=== PATIENT | female | born 1940 | race Caucasian/White ===

== ENCOUNTER 2016-09-03 13:15 | Inpatient (IN) | payer MEDICARE ==
[~2016-09-03] VITALS: Ht 167.6 cm; Wt 83.6 kg
[2016-09-03] MEDS ORDERED: SODIUM CHLORIDE 0.9% 1,000 ML IV ONE (13:46)
[2016-09-03] MEDS ORDERED: SODIUM CHLORIDE 0.9% 1,000ML IVBOLUS ONE (14:00)
[2016-09-03] MEDS ORDERED: PARO20TA4 PO (14:34)
[2016-09-03] MEDS ORDERED: ASPI-496 PO (14:34)
[2016-09-03] MEDS ORDERED: LEVO75TA5 PO (14:34)
[2016-09-03] MEDS ORDERED: SIMV40TA3 PO (14:34)
[2016-09-03] MEDS ORDERED: OMEP-110 PO (14:34)
[2016-09-03] MEDS ORDERED: LISI-167 PO (14:34)
[2016-09-03 14:57] LABS: BLOOD UREA NITROGEN 14 mg/dL (7-18)
[2016-09-03] MEDS ORDERED: SODIUM CHLORIDE FLUSH 10ML SYR IVF ONE (15:00)
[2016-09-03 15:03] LABS: ASPARTATE AMINO TRANSFERASE 36 U/L (15-37); IS PT STATUS REG ER OR PRE ER? YES
[2016-09-03] MEDS ORDERED: OMNIPAQUE 350 MG/ML, 100ML BOTTLE ONE (15:37)
[2016-09-03] MEDS ORDERED: DILTIAZEM 5 MG/ML, 5ML ONE (16:21)
[2016-09-03] MEDS ORDERED: DILTIAZEM 5 MG/ML, 5ML IV ONE (16:30)
[2016-09-03] MEDS ORDERED: ASPIRIN 81 MG TABLET CHEW PO ONE (17:00)
[2016-09-03] MEDS ORDERED: POTASSIUM CHLORIDE 20 MEQ TAB.ER.PRT PO ONE (17:00)
[2016-09-03] MEDS ORDERED: DILTIAZEM 5 MG/ML, 5ML IVPush PRN (18:00)
[2016-09-03 18:43] LABS: IS PT STATUS REG ER OR PRE ER? YES
[2016-09-03] MEDS ORDERED: POTASSIUM CHLORIDE 20 MEQ TAB.ER.PRT ONE (21:25)
[2016-09-03] MEDS: ENOXAPARIN 40 MG/0.4 ML SQ SCH (21:33)
[2016-09-03] MEDS: INSULIN ASPART 100 UNITS/ML, PEN SQ-INSULIN SCH (21:34)
[2016-09-04 00:19] VITALS: BP 136/84
[2016-09-04 00:52] LABS: IS PT STATUS REG ER OR PRE ER? NO
[2016-09-04 00:57] LABS: PATH.CAST-FLAG NOT PRESENT; SPERM-FLAG NOT PRESENT; SRC-FLAG NOT PRESENT; XTAL-FLAG NOT PRESENT; YLC-FLAG NOT PRESENT
[2016-09-04] MEDS ORDERED: MAGNESIUM SULFATE PMX 2GM/50ML 50 ML IV ONE ×2 (02:00→08:00)
[2016-09-04] MEDS ORDERED: METOPROLOL 1 MG/ML, 5ML IVPush ONE (02:00)
[2016-09-04] MEDS ORDERED: CEFTRIAXONE PMX 1GM/50ML 50 ML IV SCH (02:00)
[2016-09-04 03:42] VITALS: BP 141/77
[2016-09-04 05:57] LABS: ASPARTATE AMINO TRANSFERASE 77 U/L (15-37); BLOOD UREA NITROGEN 14 mg/dL (7-18)
[2016-09-04 06:49] VITALS: BP 162/89
[2016-09-04] MEDS ORDERED: POTASSIUM CHLORIDE 20 MEQ TAB.ER.PRT PO ONE (08:00)
[2016-09-04] MEDS: INSULIN ASPART 100 UNITS/ML, PEN SQ-INSULIN SCH ×4 (09:00→21:23)
[2016-09-04] MEDS: LISINOPRIL 10 MG TABLET PO SCH (09:25)
[2016-09-04] MEDS: ASPIRIN 81 MG TABLET EC PO SCH (09:25)
[2016-09-04] MEDS: PAROXETINE 20 MG TABLET PO SCH (09:25)
[2016-09-04] MEDS: LEVOTHYROXINE 75 MCG TABLET PO SCH (09:26)
[2016-09-04] MEDS: METOPROLOL TARTRATE 50 MG TABLET PO SCH ×2 (09:26→18:13)
[2016-09-04] MEDS: LORazepam 0.5MG TABLET PO PRN ×2 (09:30→23:22)
[2016-09-04] MEDS: FUROSEMIDE 20 MG/2 ML IV SCH (09:31)
[2016-09-04] MEDS: INSULIN DETEMIR 100 UNITS/ML, PEN SQ-INSULIN SCH ×2 (12:35→21:22)
[2016-09-04 13:22] VITALS: BP 157/93
[2016-09-04] MEDS ORDERED: CEFTRIAXONE 1,000 MG in SODIUM CHLORIDE 0.9% 50 ML IVPB SCH (14:00)
[2016-09-04] MEDS: CEFTRIAXONE 1,000 MG in SODIUM CHLORIDE 0.9% 50 ML IVPB SCH (16:30)
[2016-09-04] MEDS: ENOXAPARIN 40 MG/0.4 ML SQ SCH (18:13)
[2016-09-04 20:46] VITALS: BP 134/72
[2016-09-05] MEDS: CEFTRIAXONE 1,000 MG in SODIUM CHLORIDE 0.9% 50 ML IVPB SCH ×2 (02:09→14:22)
[2016-09-05 02:24] VITALS: BP 131/67
[2016-09-05] MEDS: METOPROLOL TARTRATE 50 MG TABLET PO SCH (05:29)
[2016-09-05] MEDS: INSULIN ASPART 100 UNITS/ML, PEN SQ-INSULIN SCH ×4 (07:47→20:07)
[2016-09-05] MEDS: LISINOPRIL 10 MG TABLET PO SCH (07:48)
[2016-09-05] MEDS: INSULIN DETEMIR 100 UNITS/ML, PEN SQ-INSULIN SCH (07:48)
[2016-09-05] MEDS: PAROXETINE 20 MG TABLET PO SCH (07:48)
[2016-09-05] MEDS: FUROSEMIDE 20 MG/2 ML IV SCH (07:48)
[2016-09-05] MEDS: ASPIRIN 81 MG TABLET EC PO SCH (07:48)
[2016-09-05] MEDS: LEVOTHYROXINE 75 MCG TABLET PO SCH (07:49)
[2016-09-05 07:51] VITALS: BP 146/78
[2016-09-05 08:10] LABS: BLOOD UREA NITROGEN 25 mg/dL (7-18)
[2016-09-05 08:13] LABS: ASPARTATE AMINO TRANSFERASE 98 U/L (15-37)
[2016-09-05 08:24] VITALS: BP 135/75
[2016-09-05] MEDS ORDERED: REGADENOSON 0.4 MG/5 ML SYRINGE ONE (08:40)
[2016-09-05 16:40] VITALS: BP 152/76
[2016-09-05] MEDS: CARVEDILOL 6.25 MG TABLET PO SCH (16:43)
[2016-09-05] MEDS: ENOXAPARIN 40 MG/0.4 ML SQ SCH (16:45)
[2016-09-05 20:47] VITALS: BP 154/82
[2016-09-05] MEDS ORDERED: INSULIN DETEMIR 100 UNITS/ML, PEN SQ-INSULIN SCH (21:00)
[2016-09-05] MEDS: LORazepam 0.5MG TABLET PO PRN (23:28)
[2016-09-06] MEDS: CEFTRIAXONE 1,000 MG in SODIUM CHLORIDE 0.9% 50 ML IVPB SCH (02:00)
[2016-09-06 02:43] VITALS: BP 134/77
[2016-09-06 05:50] VITALS: BP 153/70
[2016-09-06] MEDS: CARVEDILOL 6.25 MG TABLET PO SCH (05:50)
[2016-09-06 06:36] LABS: ASPARTATE AMINO TRANSFERASE 69 U/L (15-37); BLOOD UREA NITROGEN 29 mg/dL (7-18)
[2016-09-06] MEDS ORDERED: INSULIN DETEMIR 100 UNITS/ML, PEN SQ-INSULIN SCH (07:30)
[2016-09-06] MEDS ORDERED: POTASSIUM CHLORIDE 20 MEQ TAB.ER.PRT ONE (08:14)
[2016-09-06] MEDS: INSULIN ASPART 100 UNITS/ML, PEN SQ-INSULIN SCH ×2 (08:21→12:05)
[2016-09-06] MEDS: ASPIRIN 81 MG TABLET EC PO SCH (08:22)
[2016-09-06] MEDS: FUROSEMIDE 20 MG/2 ML IV SCH (08:22)
[2016-09-06] MEDS: PAROXETINE 20 MG TABLET PO SCH (08:22)
[2016-09-06] MEDS: LEVOTHYROXINE 75 MCG TABLET PO SCH (08:22)
[2016-09-06] MEDS: LISINOPRIL 10 MG TABLET PO SCH (08:25)
[2016-09-06 08:26] VITALS: BP 150/79
[2016-09-06] MEDS ORDERED: POTASSIUM CHLORIDE 20 MEQ TAB.ER.PRT PO ONE (09:00)
[2016-09-06] MEDS ORDERED: MAGNESIUM SULFATE PMX 2GM/50ML 50 ML IV ONE (12:00)
[2016-09-06] MEDS ORDERED: INSU100I28 SQ-INSULIN ×2 (13:18)
[2016-09-06] MEDS ORDERED: CARV12.543 PO (13:18)
[2016-09-06] MEDS ORDERED: FURO20TA3 PO (13:18)
[2016-09-06] MEDS ORDERED: POTA10TA11 PO (13:18)
[2016-09-06] MEDS ORDERED: AMOX1TAB61 PO (13:18)
[2016-09-06] MEDS ORDERED: MAGN400T7 PO (13:18)
[2016-09-06] MEDS ORDERED: PNEUMOCOCCAL 23 VACCINE IM-VACC ONE (14:30)
== END 2016-09-06 15:55 | disposition home health service (06) | DRG 291 ==
LOC: ED 16:51 → EDIP 16:52 → ED 17:00 → 5SO 19:12 → DCLOUNGE 09-06 15:00
PROVIDERS: ADMIT Internal Medicine; ATTEND Internal Medicine
DX: I11.0 Hypertensive heart disease with heart failure (principal); G93.40 Encephalopathy, unspecified; R65.10 Systemic inflammatory response syndrome (SIRS) of non-infectious origin without acute organ dysfunction; N39.0 Urinary tract infection, site not specified; I50.20 Unspecified systolic (congestive) heart failure; E03.9 Hypothyroidism, unspecified; E11.65 Type 2 diabetes mellitus with hyperglycemia; E78.5 Hyperlipidemia, unspecified; F41.9 Anxiety disorder, unspecified; K21.9 Gastro-esophageal reflux disease without esophagitis; E87.6 Hypokalemia; E83.42 Hypomagnesemia; Z96.651 Presence of right artificial knee joint; B95.5 Unspecified streptococcus as the cause of diseases classified elsewhere; K76.0 Fatty (change of) liver, not elsewhere classified; Z83.3 Family history of diabetes mellitus; Z82.5 Family history of asthma and other chronic lower respiratory diseases; Z88.2 Allergy status to sulfonamides; Z87.891 Personal history of nicotine dependence; Z23 Encounter for immunization
CPT/HCPCS: 36415; 70450; 71010; 71275; 76700; 78452; 80053; 81001; 82962; 83036; 83690; 83735; 83880; 84443; 84484; 85025; 85379; 87086; 87147; 90732; 93005; 93017; 93306; 93880; 96374; J0696; J1650; J1815; J2785; Q9967; A9502; C9898; J1940; J3475; J7030

== ENCOUNTER 2019-08-23 14:14 | Emergency (ER) | payer MEDICARE ==
[~2019-08-23] VITALS: Ht 162.6 cm; Wt 80.0 kg
[~2019-08-23 14:14] MED LIST: AMOX1TAB61 PO; ASPI-496 PO; CARV12.543 PO; FURO20TA3 PO; INSU100I28 SQ-INSULIN; LEVO75TA5 PO; LISI-167 PO; MAGN400T9 PO; OMEP-110 PO; PARO20TA4 PO; POTA10TA11 PO; SIMV40TA20 PO
[2019-08-23 14:17] VITALS: BP 153/67
== END 2019-08-23 16:15 | disposition home or self-care (01) ==
LOC: ED 14:56
DX: S80.02XA Contusion of left knee, initial encounter (principal); K21.9 Gastro-esophageal reflux disease without esophagitis; E11.9 Type 2 diabetes mellitus without complications; E78.5 Hyperlipidemia, unspecified; I10 Essential (primary) hypertension; Z87.891 Personal history of nicotine dependence; W01.198A Fall on same level from slipping, tripping and stumbling with subsequent striking against other object, initial encounter; Y92.89 Other specified places as the place of occurrence of the external cause; Y92.410 Unspecified street and highway as the place of occurrence of the external cause; Y99.8 Other external cause status
CPT/HCPCS: 99283